=== PATIENT | male | born 1965 | race Hispanic/Latino ===

== ENCOUNTER 2020-08-22 16:18 | Inpatient (IN) | payer BC ==
--- NOTE | 2020-08-22 16:53 | ULT ---
Sonogram right upper quadrant HISTORY: Right upper quadrant pain. FINDINGS: Gallbladder is distended up to 10.9 cm. Multiple shadowing stones within the lumen. No gall bladder wall thickening or pericholecystic fluid. Patient was reportedly tender over the gallbladder fossa at the time of the exam. Liver unremarkable without focal mass or intrahepatic biliary dilatation. No free fluid. IMPRESSION : Cholelithiasis. Gallbladder distention and positive sonographic Corey sign are supportive for acute cholecystitis.
[2020-08-22 17:03] LABS: #Lymphocytes 1.3 thou/uL (1.20-3.40); #Monocytes 0.6 thou/uL (0.11-0.59); %Basophils 0.2 % (0.0-1.0); %Eosinophils 0.1 % (0.0-10.0); %Lymphocytes 8.6 % (21.0-51.0); %Neutrophils 87.1 % (42.0-75.0); Hemoglobin 14.7 g/dL (14.0-18.0); Mean Corpuscular Hemoglobin 30.6 pg (27.0-31.0); Mean Corpuscular Volume 92.8 fL (78.0-98.0); Platelet Count 247 thou/uL (130-400); RBC Distribution Width 12.1 % (11.5-14.5); Red Blood Cell (RBC) Count 4.81 mill/uL (4.70-6.10); White Blood Cell (WBC) Count 14.9 thou/uL (4.8-10.8)
[2020-08-22 17:31] LABS: ALT (SGPT) 27 U/L (8-55); AST (SGOT) 21 U/L (5-34); Albumin 4.5 g/dL (3.5-5.0); Alkaline Phosphatase 73 U/L (40-110); Anion Gap 16 mmol/L (10-20); BUN (Urea Nitrogen) 13 mg/dL (8.4-25.7); Bilirubin, Total 0.3 mg/dL (0.2-1.2); Calc. Creatinine Clearance 0 mL/min (70-130); Calcium 9.2 mg/dL (7.8-10.44); Carbon Dioxide 25 mmol/L (22-29); Chloride 99 mmol/L (98-107); Globulin 3.6 g/dL (2.4-3.5); Glucose 152 mg/dL (70-105); Lipase 31 U/L (8-78); Potassium 4.3 mmol/L (3.5-5.1); Protein, Total 8.1 g/dL (6.0-8.3); Sodium 136 mmol/L (136-145)
[2020-08-22] MEDS ORDERED: Ondansetron PF 4 MG/2 ML Vial ONE (18:32)
[2020-08-22] MEDS ORDERED: Piperacillin/Tazobactam 3.375 GM VIAL ONE (18:32)
[2020-08-22] MEDS ORDERED: Morphine 4 MG/ML VIAL ONE ×2 (18:32→21:19)
--- NOTE | 2020-08-22 19:17 | RAD ---
FRONTAL RADIOGRAPH CHEST: Date: 08-22-2020 Comparison: None History: Right upper quadrant pain. FINDINGS: No pneumothorax, pleural fluid, focal consolidation or alveolar edema. Mild pulmonary vascular promin ence. Heart and mediastinal contours appear grossly unremarkable. IMPRESSION: No focal consolidation or alveolar edema. POS: [facility]
[2020-08-23] MEDS ORDERED: Acetaminophen 500 MG TAB ONE (00:36)
[2020-08-23] MEDS ORDERED: Morphine 4 MG/ML VIAL SLOW IVP PRN ×2 (02:09→07:50)
[2020-08-23 02:11] VITALS: BMI 29.2
[2020-08-23] MEDS ORDERED: Ondansetron ODT 4 MG TAB SL PRN (02:15)
[2020-08-23] MEDS ORDERED: Ondansetron PF 4 MG/2 ML Vial IVP PRN (02:15)
[2020-08-23] MEDS ORDERED: Sodium Chloride 0.9% 1,000 ML IV SCH (02:15)
[2020-08-23] MEDS ORDERED: Piperacillin/Tazobactam 3.375 GM in Sodium Chloride 0.9% 100 ML IVPB SCH (03:00)
[2020-08-23 04:24] LABS: SARS-CoV-2 MS2 Positive; SARS-CoV-2 N Gene Negative; SARS-CoV-2 S Gene Negative; SARS-CoV-2 by NAA Not Detected (NotDetected); SARS-CoV-2 orf1ab Negative
[2020-08-23] MEDS ORDERED: Ondansetron ODT 8 MG TAB SL PRN (07:50)
[2020-08-23] MEDS ORDERED: Morphine 2 MG/ML VIAL SLOW IVP PRN (07:50)
[2020-08-23] MEDS ORDERED: Ketorolac Tromethamine 30 MG/ML VIAL IVP PRN (07:50)
[2020-08-23] MEDS ORDERED: Acetaminophen 500 MG TAB PO PRN (07:50)
[2020-08-23] MEDS ORDERED: Ketorolac Tromethamine 30 MG/ML VIAL IVP SCH (08:00)
[2020-08-23] MEDS ORDERED: Scopolamine 1.5 mg/72 hour Patch TD SCH (08:00)
[2020-08-23] MEDS ORDERED: Acetaminophen 500 MG TAB PO SCH (08:00)
--- NOTE | 2020-08-23 09:07 | HP ---
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 Ultrasound revealed gallstones, normal bile duct caliber, normal liver function tests, normal lipase. The patient denies having prior symptoms. Positive sonographic Corey sign noted. ALLERGIES: NONE. SOCIAL HISTORY: Tobacco one-third to one-half pack per day. Alcohol, none. MEDICATIONS: None routinely. PAST SURGICAL HISTORY: Right inguinal hernia repair, ORIF, tib-fib fracture. PAST MEDICAL HISTORY: Noncontributory. REVIEW OF SYSTEMS: Ten-point noncontributory. FAMILY HISTORY: Noncontributory. PHYSICAL EXAMINATION: VITAL SIGNS: 5 feet 7 inches, 187 pounds, 29 BMI, 98.6 degrees, 80, 150/82. HEENT: Sclerae not icteric. SKIN: Nonjaundiced. LUNGS: Clear to auscultation. CARDIAC: Regular rate and rhythm without murmur or gallop. ABDOMEN: Soft, tenderness in right upper quadrant without guarding, rebound. Positive Corey's. EXTREMITIES: Unremarkable. No ankle edema. NEUROLOGICAL: Intact. [place] Coma Scale 15. No lymphadenopathy in neck, axilla, or groins. ASSESSMENT AND PLAN: Cholecystitis. PLAN: Laparoscopic cholecystectomy. Expect him to be able to go home postoperatively today. He understands risks and benefits of the procedure and consents. He is COVID negative. Job ID: [id number]
[2020-08-23] MEDS ORDERED: Rocuronium Bromide 10 MG/ML (10ML VIAL) ONE (10:09)
[2020-08-23] MEDS ORDERED: Ondansetron PF 4 MG/2 ML Vial ONE (10:09)
[2020-08-23] MEDS ORDERED: Glycopyrrolate 0.2 MG/ML 5 ML SYRINGE ONE (10:09)
[2020-08-23] MEDS ORDERED: PROPOFOL 200 MG/20 ML VIAL ONE (10:09)
[2020-08-23] MEDS ORDERED: Dexamethasone 20 MG/5 ML VIAL ONE (10:09)
[2020-08-23] MEDS ORDERED: Fentanyl 100 MCG/2 ML VIAL ONE ×2 (10:37→11:49)
[2020-08-23] MEDS ORDERED: Lidocaine 1% w/Epinephrine 1:100K 20 ML VIAL ONE (10:40)
[2020-08-23] MEDS ORDERED: Bupivacaine PF 0.5% 30 ML VIAL ONE (10:40)
[2020-08-23] MEDS ORDERED: traMADol HCl 50 MG TAB PO PRN ×2 (11:34)
[2020-08-23] MEDS ORDERED: Promethazine HCl 25 MG/ML VIAL IM PRN (11:44)
[2020-08-23] MEDS ORDERED: Promethazine HCl 25 MG/ML VIAL SLOW IVP PRN (11:44)
[2020-08-23] MEDS ORDERED: Ondansetron HCl/PF 4 MG/2 ML Vial IVP PRN (11:44)
[2020-08-23 14:53] VITALS: BP 107/72; TEMP 98.1
--- NOTE | 2020-08-23 17:56 | OP ---
DATE OF PROCEDURE: 08/23/2020 PREOPERATIVE DIAGNOSES: Acute cholecystitis and cholelithiasis. POSTOPERATIVE DIAGNOSES: Acute cholecystitis and cholelithiasis. PROCEDURE PERFORMED: Laparoscopic video cholecystectomy. ANESTHESIA: General, local 0.5% Marcaine 30 mL mixed with 1% Xylocaine with epinephrine 20 mL. DESCRIPTION OF PROCEDURE: The patient was taken to the operating room, where under general anesthesia, abdomen was clipped of hair, prepared with ChloraPrep and draped in routine fashion. Local anesthetic was infiltrated in the skin and subcutaneous tissue about each port site. Infraumbilical incision made, pneumoperitoneum to 15 mmHg obtained with a Veress needle, replaced with a 5 port, video laparoscope inserted. Right subxiphoid incision made and an 11 port placed, right subcostal incision made at midclavicular entrance line and 5 ports placed. The gallbladder was acutely inflamed, gangrenous, and required decompression which was performed with cautery evacuating bile content. Fundus was grasped at the cephalad. Liver appeared to be normal. Infundibulum was grasped laterally. Cystic artery and duct dissected free. Critical view obtained. Cystic artery and duct doubly clipped proximally, divided. Gallbladder dissected free from inflammatory attachments from the liver bed obtaining good hemostasis prior to division of final peritoneal attachments and gallbladder and contents. Gallstones removed, submitted to Pathology. Good hemostasis assured. Irrigant and pneumoperitoneum evacuated. All instruments were removed. All skin incisions were approximated with interrupted subdermal 4-0 Monocryl and Twin glue applied. Job ID: [id number]
--- NOTE | 2020-08-24 06:58 | DIS ---
DATE OF ADMISSION: 08/22/2020 DATE OF DISCHARGE: 08/23/2020 DISCHARGE DIAGNOSES: Acute chronic cholecystitis and cholelithiasis. PROCEDURES PERFORMED: Laparoscopic video cholecystectomy and ultrasound of the gallbladder in the emergency room. HISTORY: A 54-year-old male, claiming this is his first biliary event, presented to the emergency room. Ultrasound, positive sonographic Corey sign, gallstones, normal liver function test. Received intravenous fluids and antibiotics. Hospitalized overnight, underwent laparoscopic cholecystectomy, after which he was discharged home. Diet and activity as tolerated. Tylenol and Advil [id number] for pain and Ultram #25, one refill given to fill if needed. Diet and activity without restrictions. Job ID: [id number]
[2020-08-28] MEDS ORDERED: Ibuprofen 600 MG TAB PO PRN (11:34)
== END 2020-08-23 15:46 | disposition home or self-care (01) | DRG 419 ==
LOC: ERS 16:18 → EDBD 18:27 → ERHOLD 18:27 → SURG A 08-23 01:57
PROVIDERS: ADMIT Specialist; ATTEND Specialist
PROC: 0FT44ZZ Resection of Gallbladder, Percutaneous Endoscopic Approach (ICD-10-PCS; principal; 2020-08-23)
DX: K80.12 Calculus of gallbladder with acute and chronic cholecystitis without obstruction (principal); Z20.828 Contact with and (suspected) exposure to other viral communicable diseases; F17.210 Nicotine dependence, cigarettes, uncomplicated
CPT/HCPCS: 36415; 71045; 76705; 80053; 83690; 85025; 87635; 88304; 93005; 96365; 96375; 96376; J1100; J1885; J1956; J2270; J2405; J2543; J2704; J3010; J3490; S0020; U0003